=== PATIENT | male | born 1985 | race Caucasian/White ===

== ENCOUNTER 2017-06-17 19:33 | Emergency (ER) | payer BC ==
[2017-06-17 20:20] VITALS: BP 129/53
--- NOTE | 2017-06-17 21:24 | UC ---
Throat Pain/Nasal Willem HPI - HPI Summary HPI Summary: Pt presents to urgent care with report of fevers, sweats, and sore throat "on fire" Pt states his SO, son and his mom all with strep throat in last week. Pt states has taken motrin with improvement. Pt also reports his urine has been very dark in color. Pt states has been eating and drinking well. Pt denies rash. Pt denies ear pain, sinus congestion. pt does drink ETOH. Pt states used to be "a lot" but has cut back. pt states he drank "heavily" on Friday. Pt denies nausea, vomiting, diarrhea. Pt denies abd pain but sates feels bloated pt's medications reviewed at this visit - History of Current Complaint Chief Complaint: UCRespiratory Stated Complaint: FEVER Time Seen by Provider: 06/17/17 21:15 Hx Obtained From: Patient Onset/Duration: Gradual Onset, Lasting Days Severity: Moderate Associated Signs & Symptoms: Positive: Nasal Discharge, Fever - Allergies/Home Medications Allergies/Adverse Reactions: Allergies Allergy/AdvReac Type Severity Reaction Status Date / Time Penicillins Allergy Unknown Unknown Verified 06/17/17 20:20 Reaction Details PMH/Surg Hx/FS Hx/Imm Hx Previously Healthy: Yes - Surgical History Surgical History: Yes Surgery Procedure, Year, and Place: RIGHT FIB/TIB FX,HAS A METAL ESTHER - Social History Occupation: Employed Full-time Lives: With Family Alcohol Use: Daily Substance Use Type: None Smoking Status (MU): Former Smoker Type: Smokeless Tobacco - Immunization History Most Recent Influenza Vaccination: no Most Recent Tetanus Shot: WITHIN 5 YEARS Review of Systems Constitutional: Fever, Fatigue Eyes: Negative ENT: Sore Throat Respiratory: Negative Cardiovascular: Negative Gastrointestinal: Other - bloated Genitourinary: Other - urine dark Musculoskeletal: Negative All Other Systems Reviewed And Are Negative: Yes Physical Exam Triage Information Reviewed: Yes Appearance: Well-Appearing, No Pain Distress, Well-Nourished Vital Signs: Initial Vital Signs Temp 98.1 F 06/17/17 20:16 Pulse 64 06/17/17 20:16 Resp 16 06/17/17 20:16 BP 129/53 06/17/17 20:16 Pulse Ox 100 06/17/17 20:16 Vital Signs Reviewed: Yes Eye Exam: Normal Eyes: Positive: Conjunctiva Clear, Other: - not icteric ENT Exam: Normal ENT: Positive: Normal ENT inspection, Pharyngeal erythema, Nasal congestion, TMs normal, Tonsillar exudate - + exudate R>L present bilateral, uvula midline. Negative: Pharynx normal Dental Exam: Normal Neck exam: Normal Neck: Positive: Supple, Nontender, No Lymphadenopathy Respiratory Exam: Normal Respiratory: Positive: Chest non-tender, Lungs clear, Normal breath sounds, No respiratory distress, No accessory muscle use Cardiovascular Exam: Normal Cardiovascular: Positive: RRR, No Murmur, Pulses Normal Abdominal Exam: Normal Abdomen Description: Positive: Nontender, No Organomegaly, Soft Bowel Sounds: Positive: Present Musculoskeletal Exam: Normal Neurological Exam: Normal Neurological: Positive: Alert Psychological Exam: Normal Psychological: Positive: Normal Response To Family Skin Exam: Normal Throat Pain/Nasal Course/Dx - Course Assessment/Plan: Pt presents with sore throat and congestion progressive x 5 days. Pt with several exposures to strep throat. pt also reports dark urine and feeling bloated. pt with a h.o ETOH use and reports drinking heavily on Friday. With respect to throat- pt with erythema and exudate. Pt also with reported fever and +lymphadenopathy - will treat for strep despite neg culture. With respect to bloating and urine - I discussed with pt concern for ?liver inglammation related to ETOH. Chek ot urine + bili + protein. pt VSS and non toxic appearing and on concerning abd exam. will draw labs incluing LFTs. pt will call pcp tp schedule follow-up. pt to go to ed for abd pain, vomting, fever, or any other concers. Pt states understanding and agreement with plan - Differential Dx/Diagnosis Provider Diagnoses: exudative pharyngitis. abdominal bloating. proteinuria Discharge - Discharge Plan Condition: Stable Disposition: HOME Prescriptions: Azithromycin TAB* [Zithromax TAB (Z-FRANCISCO JAVIER) 250 mg #6 tabs] 250 mg PO DAILY #4 tab Patient Education Materials: Pharyngitis (ED), Gas and Bloating (ED) Referrals: Farooq Guzman DO [Primary Care Provider] - Additional Instructions: -stay well hydrated. Drink plenty of non-alcoholic, non-caffinated beverages - Take antibiotics as prescribed until gone - After you have been on antibiotics for 2 days - change your toothbrush and your pillowcase. These infections are spread by secretions - do NOT share eating or drinking utensils - clean items you share with other people such as cell phones, computer mouse, TV remote, computer tablets, etc As discussed with you today, the doctor draw lab work to further evaluate your liver. These results will take up to 48 hours to come back - if your tests are concerning, you will receive a call from our care team Contact your doctor tomorrow to schedule a follow-up appointment. Contact your doctor or return with questions or concerns
[2017-06-17] MEDS ORDERED: Azithromycin TAB* 250 MG PO ONE (21:25)
[2017-06-18 11:31] LABS: Hematocrit 41 % (42-52); Hemoglobin 14.6 g/dl (14.0-18.0); Mean Corpuscular HGB Conc 36 g/dl (31-36); Mean Corpuscular Hemoglobin 33 pg (27-31); Mean Corpuscular Volume 92 fL (80-94); Mean Platelet Volume 10 um3 (7.4-10.4); Red Cell Distribution Width 14 % (10.5-15); White Blood Count 7.5 10^3/ul (3.5-10.8)
[2017-06-18 11:34] LABS: Comments Flag Yes
[2017-06-18 11:35] LABS: Add Diff/Slide Review? Slide Review Added
[2017-06-18 11:42] LABS: Albumin 3.7 g/dL (3.2-5.2); BUN/Creatinine Ratio 13.5 (8-20); Calcium 8.7 mg/dL (8.6-10.3); EGFR African American 128.2 (>60); EGFR Non-African American 99.7 (>60); Globulin 3.2 g/dL (2-4); Potassium 3.8 mmol/L (3.5-5.0); Total Bilirubin 0.7 mg/dL (0.2-1.0); Total Protein 6.9 g/dL (6.4-8.9)
[2017-06-18 12:18] LABS: Eosinophils % 1 % (0-6); Immature Granulocytes 6 % (0-9); Neutrophil % 16 % (38-83); Reactive Lymph % 25 % (0-6)
[2017-06-18 12:23] LABS: Add Path Review? YES; RBC Morphology Normal (Normal)
[2017-06-18 12:30] LABS: Mono Internal Control QC Line Present
--- NOTE | 2017-06-19 07:55 | UC ---
Progress - Progress Note Progress Note: (+) mono -- stop antibiotics -- advise no contact sports for 4 weeks, f/u with PCP for follow up before returning to contact sports
--- NOTE | 2017-06-20 07:12 | ED ---
Progress - Progress Note Progress Note: (+) mono -- stop antibiotics -- advise no contact sports for 4 weeks, f/u with PCP for follow up before returning to contact sports 06/20/17 MONO (+). NOTE PER DR SCHWARTZ. Course/Dx - Diagnoses Provider Diagnoses: Fever
== END 2017-06-17 21:51 | disposition home or self-care (01) ==
LOC: UCCORT 19:33
DX: J02.9 Acute pharyngitis, unspecified (principal); R14.0 Abdominal distension (gaseous); R80.9 Proteinuria, unspecified; R53.83 Other fatigue; Z88.0 Allergy status to penicillin; Z87.891 Personal history of nicotine dependence
CPT/HCPCS: 36415; 80053; 81003; 83690; 85025; 85060; 86308; 87651; 99212; A9270-GY; G0463

== ENCOUNTER 2018-04-01 16:21 | Emergency (ER) | payer BC ==
[2018-04-01 16:50] VITALS: BP 126/59
--- NOTE | 2018-04-01 17:12 | UC ---
Throat Pain/Nasal Willem HPI - HPI Summary HPI Summary: Patient presents with 7 days of progressive sore throat. Patient also with little bit of left ear discomfort today. No fevers or chills. Patient with painful swallowing. Patient with ability to swallow and no drooling. Patient has not taken anything for pain. Patient denies nausea vomiting. Patient denies sick contacts. Patient has rashes elsewhere. No postnasal drip no sinus pressure or ear pain. Patient's medications reviewed this visit. - History of Current Complaint Chief Complaint: UCGeneralIllness Stated Complaint: THROAT COMPLAINT Time Seen by Provider: 04/01/18 17:11 Hx Obtained From: Patient Severity: Moderate Pain Intensity: 5 Pain Scale Used: 0-10 Numeric - Allergies/Home Medications Allergies/Adverse Reactions: Allergies Allergy/AdvReac Type Severity Reaction Status Date / Time MS Penicillins [Penicillins] Allergy Unknown Unknown Verified 06/17/17 20:20 Reaction Details PMH/Surg Hx/FS Hx/Imm Hx Previously Healthy: Yes Psychological History: Other Other Psychological History: mood disorder, anger outbursts - Surgical History Surgical History: Yes Surgery Procedure, Year, and Place: RIGHT FIB/TIB FX,HAS A METAL ESTHER. WISDOM TEETH REMOVED - Social History Occupation: Employed Full-time Lives: With Family Alcohol Use: None Substance Use Type: None Smoking Status (MU): Former Smoker Type: Smokeless Tobacco - Immunization History Most Recent Influenza Vaccination: no Most Recent Tetanus Shot: WITHIN 5 YEARS Review of Systems Constitutional: Negative ENT: Sore Throat, Ear Ache All Other Systems Reviewed And Are Negative: Yes Physical Exam - Summary Physical Exam Summary: Vital Signs Reviewed: Yes A+Ox3, no distress Eyes: Conjunctiva Clear, GRACIELA. EOM intact and full ENT: Hearing grossly normal left TM mild fluid. no erythema no buldge, no erythema no PND. mmoist, uvula midline, pt with fullness left peritonsillar area no droolings. speaking fulld, easy sentences mild erythema. no exudate Uvula midline Neck: Positive: Supple Respiratory: Positive: No respiratory distress, No accessory muscle use + CTA throughout no w/r Cardiovascular: RRR nl s1, s2 no m/r CBT <2 sec abd soft + BS nt/nd no guarding, no distension Musculoskeletal Exam: MELENDEZ x 4 without difficulty Strength Intact, ROM Intact Neurological: Positive: Alert, + sensation throughout Psychological: Positive: Normal Response To Family Skin: Positive: no rash, no ecchymosis Triage Information Reviewed: Yes Vital Signs: Initial Vital Signs Temp 98.5 F 04/01/18 16:43 Pulse 84 04/01/18 16:43 Resp 14 04/01/18 16:43 BP 126/59 04/01/18 16:43 Pulse Ox 98 04/01/18 16:43 Throat Pain/Nasal Course/Dx - Course Course Of Treatment: Pt with progressive left sided sore throat x 7 days. On exam, pt with erythema and fullness left peritonsillar are - uvula midline. concerns for early peritonsillar abscess vs cellulitis. Will start abx. no steroids given h/o mental health - anger. gargel spit. pt has appt with PCP on Friday at 3:30pm - pt with strict return precautions, go to ED with any progression concerns etc - Differential Dx/Diagnosis Provider Diagnoses: peritonsillar inflammation Discharge - Sign-Out/Discharge Documenting (check all that apply): Patient Departure - Discharge Plan Condition: Stable Disposition: HOME Prescriptions: Clindamycin Cap(NF) [Clindamycin Cap 300 mg Cap(NF)] 300 mg PO TID #30 cap Patient Education Materials: Peritonsillar Abscess (ED) Referrals: Farooq Guzman DO [Primary Care Provider] - Additional Instructions: - Gargle spit with warm salt water 2-3 times a day - Take antibiotics as prescribed until gone - Okay to alternate ibuprofen (Motrin, Advil) 600 mg and Tylenol every 3 hours for pain. Take with food. - Stay well hydrated. Drink plenty of nonalcoholic, non-caffeinated beverages - Keep her appointment as scheduled this Friday with you primary care doctor. If you have increased difficulty swallowing, drooling, fevers, or pain is recommended you go directly to the emergency department for further evaluation and treatment. - Billing Disposition and Condition Condition: STABLE Disposition: Home
== END 2018-04-01 17:32 | disposition home or self-care (01) ==
LOC: UCCORT 16:21
DX: J03.90 Acute tonsillitis, unspecified (principal); Z88.0 Allergy status to penicillin; Z87.891 Personal history of nicotine dependence
CPT/HCPCS: 87651; 99212; G0463

== ENCOUNTER 2019-11-14 08:51 | Emergency (ER) | payer SELFPAY ==
[2019-11-14 09:03] VITALS: BP 129/96
--- NOTE | 2019-11-14 09:46 | ED ---
Lower Extremity - HPI Summary HPI Summary: 34 yo Wm p/w left knee pain x 2-3 weeks injured while chasing his dogs at the kennel and twisted his left knee now c/o pain on ambulation and pain is more pronounced in left medial knee, denies numbness and tingling. - History of Current Complaint Chief Complaint: UCLowerExtremity Stated Complaint: LEFT KNEE INJURY Time Seen by Provider: 11/14/19 09:02 Hx Obtained From: Patient Mechanism Of Injury: Twisted Onset/Duration: Still Present Severity Initially: Moderate Severity Currently: Moderate Pain Intensity: 5 Timing: Constant Location: Is Discrete @ - left medial knee Character Of Pain: Sharp, Aching Associated Signs And Symptoms: Positive: Knee Pain Aggravating Factor(s): Standing, Ambulation, Movement, Weight Bearing Alleviating Factor(s): Rest - Allergies/Home Medications Allergies/Adverse Reactions: Allergies Allergy/AdvReac Type Severity Reaction Status Date / Time Penicillins Allergy Unknown Unknown Verified 11/14/19 09:19 Reaction Details Home Medications: Home Medications Naproxen [Naproxen 500 mg tab] 500 mg PO BID 10 Days #20 tablet 11/14/19 [Rx] PMH/Surg Hx/FS Hx/Imm Hx - Surgical History Surgery Procedure, Year, and Place: RIGHT FIB/TIB FX,HAS A METAL ESTHER. WISDOM TEETH REMOVED Infectious Disease History: No Infectious Disease History: Denies: Traveled Outside the [place] in Last 30 Days - Social History Alcohol Use: Occasionally Substance Use Type: Reports: None Smoking Status (MU): Former Smoker Type: Smokeless Tobacco Review of Systems Constitutional: Negative Eyes: Negative ENT: Negative Positive: Other Respiratory: Negative Gastrointestinal: Negative Genitourinary: Negative Positive: Other - left knee pain Skin: Negative Neurological/Mental Status: Negative Psychological: Normal All Other Systems Reviewed And Are Negative: Yes Physical Exam - Summary Physical Exam Summary: Vital Signs Reviewed: Yes Appearance: Positive: No Pain Distress Skin: Positive: Warm Head/Face: Positive: Normal Head/Face Inspection Eyes: Positive: Normal ENT: Positive: Normal ENT inspection Dental: Negative: Cervical Lymphadenopathy Neck: Positive: Supple Respiratory/Lung Sounds: Positive: Clear to Auscultation Cardiovascular: Positive: Normal, RRR, S1, S2 Abdomen Description: Positive: Nontender Musculoskeletal: Positive: TTP left medial knee in medial meniscus region Vital Signs On Initial Exam: Initial Vitals Temp Pulse Resp BP Pulse Ox 37.1 C 90 20 129/96 98 11/14/19 08:59 11/14/19 08:59 11/14/19 08:59 11/14/19 08:59 11/14/19 08:59 Diagnostics - Vital Signs Vital Signs Temp Pulse Resp BP Pulse Ox 11/14/19 08:59 37.1 C 90 20 129/96 98 - Laboratory Lab Statement: Any lab studies that have been ordered have been reviewed, and results considered in the medical decision making process. Lower Extremity Course/Dx - Course Assessment/Plan: XR of left knee neg for fx - Diagnoses Provider Diagnoses: Left knee sprain Discharge ED - Sign-Out/Discharge Documenting (check all that apply): Patient Departure All imaging exams completed and their final reports reviewed: Yes - Discharge Plan Condition: Stable Disposition: HOME Prescriptions: Naproxen [Naproxen 500 mg tab] 500 mg PO BID 10 Days #20 tablet Patient Education Materials: Knee Sprain (ED) Referrals: Farooq Guzman DO [Primary Care Provider] - - Billing Disposition and Condition Condition: STABLE Disposition: Home
== END 2019-11-14 09:55 | disposition home or self-care (01) ==
LOC: UCCORT 08:51
DX: S83.92XA Sprain of unspecified site of left knee, initial encounter (principal); Z88.0 Allergy status to penicillin; Z87.891 Personal history of nicotine dependence; X50.1XXA Overexertion from prolonged static or awkward postures, initial encounter; Y93.89 Activity, other specified; Y92.89 Other specified places as the place of occurrence of the external cause
CPT/HCPCS: 99212; G0463